=== PATIENT | male | born 1950 | race Caucasian/White ===

== ENCOUNTER → 2016-06-19 | Outpatient (CLI) | payer OTHER, BC ==
[~2016-06-19] MED LIST: CLONIDINE HCL0.3 MG PO; DUTOPROL 100-11 EACH PO; LOTREL 10/41 CAPSULE PO; LOTREL 5/101 CAPSULE PO; PERCOCET 5/31 TABLET PO; TOPROL XL100 MG PO; TOPROL XL50 MG PO; TYLENOL REGULA325 MG PO; UROCIT-K15 MEQ PO
== END | disposition home or self-care (01) ==
LOC: NUC 08:57
DX: R25.1 Tremor, unspecified (principal)
CPT/HCPCS: 78607; A9584

== ENCOUNTER 2016-08-02 23:03 | Observation (INO) | payer OTHER, BC ==
[~2016-08-02] VITALS: Ht 181.6 cm; Wt 80.8 kg
[2016-08-02 23:45] LABS: EOSINOPHIL (%) 0.5 % (0-5); HEMATOCRIT 41.7 % (38.0-50.0); LYMPHOCYTE COUNT 1.2 K/uL (1.0-2.8); MCH 31.6 PG (29.0-34.0); MCHC 34.3 G/DL (30.0-36.0); MCV 92.3 FL (86-99); MEAN PLAT.VOLUME 10.3 uM^3 (9.0-12.4); MONOCYTE (%) 8.5 % (3-12); MONOCYTE COUNT 0.5 K/uL (0-0.8); NEUTROPHIL (%) 69.9 % (45-76); NEUTROPHIL COUNT 4.1 K/uL (1.8-6.4); PLATELET COUNT 144 K/uL (156-360); RBC DIS.WIDTH-CV 12.1 % (11.8-14.6); RBC DIS.WIDTH-SD 39.9 % (39-53); RED BLOOD COUNT 4.52 M/uL (4.00-5.50); WHITE BLOOD COUNT 5.9 K/uL (4.1-10.2)
[2016-08-02 23:58] LABS: CHLORIDE 105 mEq/L (99-109); INTER. NORMALIZED RATIO 1.1; POTASSIUM 3.9 mEq/L (3.7-5.4); PROTHROMBIN TIME 11.6 (9.2-11.2); PTT 29.2 (25-32); SODIUM 141 mEq/L (136-147)
[2016-08-03] LABS: GLUCOSE 126 mg/dL (70-99)
[2016-08-03 00:01] LABS: ANION GAP 10 MEQ/L (2-14)
[2016-08-03 00:02] LABS: TOTAL BILIRUBIN 0.6 mg/dL (0.0-1.0)
[2016-08-03 00:03] LABS: ALKALINE PHOSPHATASE 71 IU/L (3-129)
[2016-08-03 00:04] LABS: GFR ESTIMATE (CALCULATED) > 59 mL/min/
[2016-08-03 00:05] LABS: DIRECT BILIRUBIN 0.2 mg/dL (0.0-0.3); UREA NITROGEN (BUN) 22 mg/dL (9-23)
[2016-08-03 00:06] LABS: TROP-I INTERPRETATION NEGATIVE; TROPONIN-I 0.08 ng/mL (0.0-0.30)
[2016-08-03 00:07] LABS: LIPASE 34 U/L (1.0-51.0)
[2016-08-03] MEDS ORDERED: CLONIDINE HCL0.2 MG PO (00:26)
[2016-08-03] MEDS ORDERED: LOTREL 5/401 CAPSULE PO (00:27)
[2016-08-03 00:50] LABS: ADD MIUA? NO; BILIRUBIN NEGATIVE; BLOOD NEGATIVE; COLOR YELLOW ((YELLOW)); GLUCOSE (STRIP) NEGATIVE; KETONES NEGATIVE; LEUKOCYTES NEGATIVE; NITRITE NEGATIVE; PROTEIN (STRIP) 30; SPECIFIC GRAVITY 1.015 (1.000-1.030); UCUL ADDED? NO; UROBILINOGEN 0.2 MG/DL (0.2-1.0)
[2016-08-03 01:01] LABS: AMPHETAMINE NEGATIVE (500 ng/mL); BARBITURATES NEGATIVE (200 ng/mL); BENZODIAZEPINES NEGATIVE (150 ng/mL); COCAINE NEGATIVE (150 ng/mL); INTERNAL CONTROLS VALID? YES; METHADONE NEGATIVE (200 ng/mL); METHAMPHETAMINE NEGATIVE (500 ng/mL); OPIATES (MORPHINE) NEGATIVE (100 ng/mL); OXYCODONE NEGATIVE (100 ng/mL); PHENCYCLIDINE NEGATIVE (25 ng/mL); PROPOXYPHENE NEGATIVE (300 ng/mL); THC CANNABINOIDS NEGATIVE (50 ng/mL); TRICYCLIC ANTIDEPRESSANTS NEGATIVE (300 ng/mL)
[2016-08-03 01:07] LABS: SERUM ETHYL ALCOHOL < 10 mg/dL
[2016-08-03 01:41] LABS: HDL CHOLESTEROL 45 MG/DL (Desirable>=40); LDL CHOLESTEROL 93 mg/dL (Desirable<100); NON-HDL CHOLESTEROL 102 mg/dL (Desirable<160); TOTAL CHOLESTEROL 147 mg/dL (Desirable<200); TRIGLYCERIDES 47 MG/DL (Normal: <150)
[2016-08-03 02:32] VITALS: BP 160/84
[2016-08-03 03:51] VITALS: BP 155/94
[2016-08-03 07:03] LABS: TROP-I INTERPRETATION NEGATIVE; TROPONIN-I 0.11 ng/mL (0.0-0.30)
[2016-08-03 08:14] LABS: Estimated Average Glucose 88 mg/dL (70-123); HEMOGLOBIN A1c (GLYCOHEMOGLOB) 4.7 % HGB (Below 5.7)
[2016-08-03 08:45] VITALS: BP 150/91
[2016-08-03] MEDS ORDERED: ASPIR-LOW81 MG PO (12:18)
[2016-08-03] MEDS ORDERED: ATORVASTATIN CA80 MG PO (12:18)
[2016-08-03] MEDS ORDERED: METOPROLOL SUCC50 MG PO (12:18)
[2016-08-03 13:04] VITALS: BP 157/94
[2016-08-03 13:04] LABS: TROP-I INTERPRETATION NEGATIVE; TROPONIN-I 0.09 ng/mL (0.0-0.30)
== END 2016-08-03 14:16 | disposition home or self-care (01) ==
LOC: EME → EDBD 23:03 → 5WEST 08-03 00:31 → EDOF 08-03 00:31 → 5WEST 08-03 01:55
PROVIDERS: Emergency Medicine; Physician Assistant Medical
DX: I67.4 Hypertensive encephalopathy (principal); I49.3 Ventricular premature depolarization; I10 Essential (primary) hypertension; E83.119 Hemochromatosis, unspecified
CPT/HCPCS: 70450; 70551; 71020; 80048; 80061; 80076; 81003; 82140; 82607; 83036; 83690; 84443; 84484; 85025; 85610; 85730; 93005; 99281; 99285; G0378; G0480; J0360

== ENCOUNTER 2016-08-05 18:57 | Observation (INO) | payer OTHER, BC ==
[~2016-08-05] VITALS: Ht 180.3 cm; Wt 80.0 kg
[~2016-08-05 18:57] MED LIST changes: +ASPIR-LOW81 MG PO; +ATORVASTATIN CA80 MG PO; +CLONIDINE HCL0.2 MG PO; +LOTREL 5/401 CAPSULE PO; +METOPROLOL SUCC50 MG PO
[2016-08-05 19:43] LABS: MCH 31.6 PG (29.0-34.0); MCHC 34.2 G/DL (30.0-36.0); MCV 92.5 FL (86-99); MEAN PLAT.VOLUME 10.7 uM^3 (9.0-12.4); PLATELET COUNT 168 K/uL (156-360); RBC DIS.WIDTH-SD 39.6 % (39-53); RED BLOOD COUNT 4.65 M/uL (4.00-5.50); WHITE BLOOD COUNT 8.6 K/uL (4.1-10.2)
[2016-08-05 19:56] LABS: CHLORIDE 105 mEq/L (99-109); POTASSIUM 4.3 mEq/L (3.7-5.4); SODIUM 141 mEq/L (136-147)
[2016-08-05 19:57] LABS: GLUCOSE 122 mg/dL (70-99)
[2016-08-05 19:59] LABS: ANION GAP 10 MEQ/L (2-14)
[2016-08-05 20:01] LABS: GFR ESTIMATE (CALCULATED) > 59 mL/min/
[2016-08-05 20:02] LABS: UREA NITROGEN (BUN) 21 mg/dL (9-23)
[2016-08-05 20:09] LABS: TROP-I INTERPRETATION NEGATIVE; TROPONIN-I 0.12 ng/mL (0.0-0.30)
[2016-08-05 20:19] LABS: INTER. NORMALIZED RATIO 1.1; PROTHROMBIN TIME 11.7 (9.2-11.2); PTT 29.9 (25-32)
[2016-08-05] MEDS ORDERED: METOPROLOL SUCC50 MG PO (21:36)
[2016-08-05] MEDS ORDERED: LO-DOSE ASPIRIN81 M1 PO (21:37)
[2016-08-05 22:11] VITALS: BP 161/88
[2016-08-05 22:20] LABS: HDL CHOLESTEROL 38 MG/DL (Desirable>=40); LDL CHOLESTEROL 70 mg/dL (Desirable<100); NON-HDL CHOLESTEROL 81 mg/dL (Desirable<160); TOTAL CHOLESTEROL 119 mg/dL (Desirable<200); TRIGLYCERIDES 56 MG/DL (Normal: <150)
[2016-08-06] VITALS: BP 159/83
[2016-08-06 02:11] LABS: TROP-I INTERPRETATION NEGATIVE; TROPONIN-I 0.12 ng/mL (0.0-0.30)
[2016-08-06 04:00] VITALS: BP 200/101
[2016-08-06 05:30] VITALS: BP 168/91
[2016-08-06 07:22] VITALS: BP 147/95
[2016-08-06 08:57] LABS: HEMATOCRIT 48.1 % (38.0-50.0); MCH 32.4 PG (29.0-34.0); MCHC 34.5 G/DL (30.0-36.0); MCV 93.9 FL (86-99); MEAN PLAT.VOLUME 11.8 uM^3 (9.0-12.4); PLATELET COUNT 203 K/uL (156-360); RBC DIS.WIDTH-CV 12.3 % (11.8-14.6); RBC DIS.WIDTH-SD 41.7 % (39-53); RED BLOOD COUNT 5.12 M/uL (4.00-5.50)
[2016-08-06 08:59] LABS: WHITE BLOOD COUNT 11.6 K/uL (4.1-10.2)
[2016-08-06 09:04] LABS: TROP-I INTERPRETATION NEGATIVE; TROPONIN-I 0.12 ng/mL (0.0-0.30)
[2016-08-06 09:06] LABS: ALKALINE PHOSPHATASE 74 IU/L (3-129); ANION GAP 10 MEQ/L (2-14); CHLORIDE 101 MEQ/L (99-109); GFR ESTIMATE (CALCULATED) > 59 mL/min/; GLUCOSE 113 mg/dL (70-99); POTASSIUM 4.5 MEQ/L (3.7-5.4); SAMPLE HEMOLYSIS CHECK 0; SAMPLE ICTERIC CHECK 0; SAMPLE LIPEMIA CHECK 0; SODIUM 139 MEQ/L (136-147); TOTAL BILIRUBIN 1.5 MG/DL (0.0-1.0); UREA NITROGEN (BUN) 17 mg/dL (9-23)
[2016-08-06] MEDS ORDERED: BUSPAR5 MG PO (10:58)
[2016-08-06] MEDS ORDERED: METOPROLOL TART75 MG PO (10:58)
[2016-08-06 11:07] VITALS: BP 124/83
[2016-08-06] MEDS ORDERED: METOPROLOL TART50 MG PO (11:53)
[2016-08-06] MEDS ORDERED: METOPROLOL TART25 MG PO (11:53)
[2016-08-06] MEDS ORDERED: ATORVASTATIN CA40 MG PO (14:58)
[2016-08-06] MEDS ORDERED: CLONIDINE HCL0.2 MG PO (17:48)
[2016-08-06] MEDS ORDERED: TOPROL XL50 MG PO (17:49)
[2016-08-06] MEDS ORDERED: LOPRESSOR25 MG PO (17:52)
== END 2016-08-06 12:05 | disposition home or self-care (01) ==
LOC: EME 18:57 → EDOF 20:51 → 5WEST 20:51 → EDOF 20:51 → 5WEST 22:00
PROVIDERS: Emergency Medicine; Internal Medicine
DX: R41.0 Disorientation, unspecified (principal); E83.119 Hemochromatosis, unspecified; I10 Essential (primary) hypertension; E78.00 Pure hypercholesterolemia, unspecified; F32.9 Major depressive disorder, single episode, unspecified
CPT/HCPCS: 70450; 71020; 80048; 80053; 80061; 84484; 85027; 85610; 85730; 93005; 93306; 93880; 99281; 99285; G0378; J0360; J1644

== ENCOUNTER 2016-08-06 14:10 | Inpatient (IN) | payer OTHER, BC ==
[~2016-08-06] VITALS: Ht 180.3 cm; Wt 83.2 kg
[~2016-08-06 14:10] MED LIST changes: +BUSPAR5 MG PO; +LO-DOSE ASPIRIN81 M1 PO; +METOPROLOL TART25 MG PO; +METOPROLOL TART50 MG PO; +METOPROLOL TART75 MG PO
[2016-08-06] MEDS ORDERED: ATORVASTATIN CA40 MG PO (14:58)
[2016-08-06 15:43] LABS: HEMATOCRIT 44.9 % (38.0-50.0); MCH 30.9 PG (29.0-34.0); MCHC 33.4 G/DL (30.0-36.0); MCV 92.6 FL (86-99); MEAN PLAT.VOLUME 10.8 uM^3 (9.0-12.4); PLATELET COUNT 177 K/uL (156-360); RBC DIS.WIDTH-CV 12.3 % (11.8-14.6); RBC DIS.WIDTH-SD 40.8 % (39-53); RED BLOOD COUNT 4.85 M/uL (4.00-5.50); WHITE BLOOD COUNT 9.4 K/uL (4.1-10.2)
[2016-08-06 15:55] LABS: CHLORIDE 104 mEq/L (99-109); POTASSIUM 4.1 mEq/L (3.7-5.4); SODIUM 139 mEq/L (136-147)
[2016-08-06 15:57] LABS: GLUCOSE 131 mg/dL (70-99)
[2016-08-06 15:58] LABS: ANION GAP 9 MEQ/L (2-14)
[2016-08-06 16:00] LABS: SERUM ETHYL ALCOHOL < 10 mg/dL
[2016-08-06 16:01] LABS: ALKALINE PHOSPHATASE 80 IU/L (3-129); GFR ESTIMATE (CALCULATED) > 59 mL/min/; TOTAL BILIRUBIN 1.2 mg/dL (0.0-1.0)
[2016-08-06 16:02] LABS: UREA NITROGEN (BUN) 23 mg/dL (9-23)
[2016-08-06] MEDS ORDERED: CLONIDINE HCL0.2 MG PO (17:48)
[2016-08-06] MEDS ORDERED: TOPROL XL50 MG PO (17:49)
[2016-08-06] MEDS ORDERED: LOPRESSOR25 MG PO (17:52)
[2016-08-06 19:56] LABS: ADD MIUA? NO; BILIRUBIN NEGATIVE; BLOOD NEGATIVE; COLOR YELLOW ((YELLOW)); GLUCOSE (STRIP) NEGATIVE; KETONES NEGATIVE; LEUKOCYTES NEGATIVE; NITRITE NEGATIVE; PROTEIN (STRIP) 30; SPECIFIC GRAVITY 1.025 (1.000-1.030); UROBILINOGEN 0.2 MG/DL (0.2-1.0)
[2016-08-06 21:22] VITALS: BP 174/88
[2016-08-06 21:26] VITALS: BP 174/88
[2016-08-07 07:50] VITALS: BP 136/78
[2016-08-07 15:26] VITALS: BP 108/69
[2016-08-08 09:41] VITALS: BP 188/97
[2016-08-08] MEDS ORDERED: MIRTAZAPINE15 MG PO (11:19)
[2016-08-08] MEDS ORDERED: PRIMIDONE50 MG PO (11:19)
[2016-08-08] MEDS ORDERED: LISINOPRIL5 MG PO (11:19)
== END 2016-08-08 12:45 | disposition home or self-care (01) | DRG 948 ==
LOC: EME 14:10 → 1WEST 16:57 → EDOF 16:57 → 1WEST 16:57
PROVIDERS: Emergency Medicine
DX: R41.0 Disorientation, unspecified (principal); I10 Essential (primary) hypertension; E83.119 Hemochromatosis, unspecified; G25.0 Essential tremor
CPT/HCPCS: 70450; 80053; 81003; 85027; 90837; 95819; 99281; 99285; G0480

== ENCOUNTER 2016-08-12 06:28 | Inpatient (IN) | payer OTHER, BC ==
[~2016-08-12] VITALS: Ht 175.3 cm; Wt 87.7 kg
[~2016-08-12 06:28] MED LIST changes: +ATORVASTATIN CA40 MG PO; +LISINOPRIL5 MG PO; +LOPRESSOR25 MG PO; +MIRTAZAPINE15 MG PO; +PRIMIDONE50 MG PO
[2016-08-12 06:58] LABS: EOSINOPHIL (%) 0.1 % (0-5); HEMATOCRIT 42.1 % (38.0-50.0); IMMATURE GRANULOCYTE (%) 0.2 % (0.0-0.7); INSTRUMENT ABS NEUTROPHIL CT 7.1 K/uL; LYMPHOCYTE COUNT 0.7 K/uL (1.0-2.8); MCH 30.9 PG (29.0-34.0); MCHC 32.8 G/DL (30.0-36.0); MCV 94.4 FL (86-99); MEAN PLAT.VOLUME 10.4 uM^3 (9.0-12.4); MONOCYTE (%) 5.3 % (3-12); MONOCYTE COUNT 0.4 K/uL (0-0.8); NEUTROPHIL COUNT 7.1 K/uL (1.8-6.4); PLATELET COUNT 152 K/uL (156-360); RBC DIS.WIDTH-CV 11.9 % (11.8-14.6); RED BLOOD COUNT 4.46 M/uL (4.00-5.50); WHITE BLOOD COUNT 8.3 K/uL (4.1-10.2)
[2016-08-12 07:08] LABS: CHLORIDE 102 mEq/L (99-109); POTASSIUM 3.8 mEq/L (3.7-5.4); SODIUM 137 mEq/L (136-147)
[2016-08-12 07:10] LABS: GLUCOSE 164 mg/dL (70-99)
[2016-08-12 07:12] LABS: ANION GAP 11 MEQ/L (2-14)
[2016-08-12 07:13] LABS: SERUM ETHYL ALCOHOL < 10 mg/dL
[2016-08-12 07:14] LABS: GFR ESTIMATE (CALCULATED) > 59 mL/min/
[2016-08-12 07:15] LABS: UREA NITROGEN (BUN) 20 mg/dL (9-23)
[2016-08-12 08:56] LABS: ADD MIUA? NO; BILIRUBIN NEGATIVE; BLOOD NEGATIVE; COLOR YELLOW ((YELLOW)); GLUCOSE (STRIP) NEGATIVE; KETONES NEGATIVE; LEUKOCYTES NEGATIVE; NITRITE NEGATIVE; PROTEIN (STRIP) NEGATIVE; SPECIFIC GRAVITY 1.013 (1.000-1.030); UROBILINOGEN 0.2 MG/DL (0.2-1.0)
[2016-08-12 09:04] LABS: AMPHETAMINE NEGATIVE (500 ng/mL); BARBITURATES NEGATIVE (200 ng/mL); BENZODIAZEPINES NEGATIVE (150 ng/mL); COCAINE NEGATIVE (150 ng/mL); INTERNAL CONTROLS VALID? YES; METHADONE NEGATIVE (200 ng/mL); METHAMPHETAMINE NEGATIVE (500 ng/mL); OPIATES (MORPHINE) NEGATIVE (100 ng/mL); OXYCODONE NEGATIVE (100 ng/mL); PHENCYCLIDINE NEGATIVE (25 ng/mL); PROPOXYPHENE NEGATIVE (300 ng/mL); THC CANNABINOIDS NEGATIVE (50 ng/mL); TRICYCLIC ANTIDEPRESSANTS NEGATIVE (300 ng/mL)
[2016-08-12] MEDS ORDERED: CATAPRES0.1 MG PO (10:26)
[2016-08-12] MEDS ORDERED: PRINIVIL5 MG PO (10:27)
[2016-08-12] MEDS ORDERED: TYLENOL REGULA325 MG PO (10:27)
[2016-08-12 14:45] VITALS: BP 111/64
[2016-08-12 20:40] VITALS: BP 143/84
[2016-08-13 07:27] VITALS: BP 138/88
[2016-08-13 15:49] VITALS: BP 129/80
[2016-08-14 07:54] VITALS: BP 177/106
[2016-08-14 15:49] VITALS: BP 180/92
[2016-08-14 19:36] VITALS: BP 178/119
[2016-08-14 21:54] VITALS: BP 126/88
[2016-08-15 08:09] VITALS: BP 157/96
[2016-08-15] MEDS ORDERED: HALDOL2 MG PO (09:40)
[2016-08-15] MEDS ORDERED: DONEPEZIL HCL5 MG PO (09:40)
[2016-08-15 10:46] VITALS: BP 160/87
== END 2016-08-15 10:54 | disposition short-term general hospital (02) | DRG 885 ==
LOC: EME → EDBD 06:28 → EDOF 09:30 → 1WEST 09:30
PROVIDERS: Emergency Medicine
DX: F29 Unspecified psychosis not due to a substance or known physiological condition (principal); I10 Essential (primary) hypertension; F02.81 Dementia in other diseases classified elsewhere, unspecified severity, with behavioral disturbance
CPT/HCPCS: 80048; 81003; 85025; 90837; 97165 GO; 99281; 99285; G0480; J1630; J2060